=== PATIENT | female | born 1955 | race Hispanic/Latino ===

== ENCOUNTER 2022-08-09 06:52 | Day surgery (SDC) | payer MEDICARE ==
[2022-08-07 10:05] LABS: BASOPHILS % (AUTO) 0.4 % (0.0-5.0); EOSINOPHILS % (AUTO) 3.4 % (0.0-8.0); HEMATOCRIT 42.1 % (36-48); LYMPHOCYTES % (AUTO) 27.5 % (21.0-51.0); MEAN CORPUSCULAR HEMOGLOBIN 31.1 pg (27.0-33.0); MEAN CORPUSCULAR HGB CONC 32.1 g/dL (32.0-36.0); MONOCYTES % (AUTO) 7.5 % (3.0-13.0); NEUTROPHILS % (AUTO) 60.8 % (40.0-77.0); PLATELET COUNT (AUTO) 252 K/uL (130-400); RED BLOOD CELL COUNT(AUTO) 4.34 MIL/uL (4.00-5.50); WHITE BLOOD COUNT (AUTO) 10.7 K/uL (4.8-10.8)
[2022-08-07 10:09] LABS: CREATININE 0.8 mg/dL (0.5-1.5); INR 0.97 (0.85-1.15); PROTHROMBIN TIME 11.3 SEC (9.6-11.6)
[2022-08-07 10:10] LABS: PARTIAL THROMBOPLASTIN TIME 24.9 SEC (26.3-35.5)
[2022-08-07 11:06] VITALS: BP 148/74
[~2022-08-09] VITALS: Ht 157.5 cm; Wt 69.8 kg
[2022-08-09] VITALS (7 sets, daily range): BP systolic 130–152; BP diastolic 46–63
[~2022-08-09 06:52] MED LIST: AEC81 PO; AMIO200T68 PO; APIX5TAB PO; ATOR40TA71 PO; BIOT10005 PO; CHOL200013 PO; ESTR1TAB17 PO; FURO20TA4 PO; INSU100I26 SQ; LEVO25CA4 PO; LOSA50TA64 PO; METO-408 PO; MULT-952 PO; PREG150C46 PO; SEMA0.258 SQ; SITA1TAB6 PO; ZINC220T4 PO
[2022-08-09] MEDS ORDERED: 0.9%NACL 1000ML 1,000 ML IV ONE (08:05)
[2022-08-09] MEDS ORDERED: IODIXANOL 320 MG/ML 100 ML VIAL ONE (10:42)
[2022-08-09] MEDS ORDERED: HEPARIN 10,000 UNIT/10ML (1,000 UNIT/ML) VIAL ONE (10:42)
[2022-08-09] MEDS ORDERED: MIDAZOLAM HCL 1 MG/ML 2ML VIAL ONE ×2 (10:42→11:41)
[2022-08-09] MEDS ORDERED: LIDOCAINE HCL 1% MDV 50ML VIAL ONE (10:42)
[2022-08-09] MEDS ORDERED: NITROGLYCERIN 50MG VIAL ONE (10:43)
[2022-08-09] MEDS ORDERED: FENTANYL CITRATE PF 50 MCG/1 ML 2ML VIAL ONE ×2 (10:43→11:41)
[2022-08-09] MEDS ORDERED: ACETAMINOPHEN WITH CODEINE 1 TAB TAB PO PRN (13:00)
[2022-08-09] MEDS ORDERED: 0.9%NACL 1000ML 1,000 ML IV SCH (13:00)
== END 2022-08-09 14:35 | disposition home or self-care (01) ==
LOC: DAH 06:52
PROVIDERS: ATTEND Internal Medicine
DX: I70.238 Atherosclerosis of native arteries of right leg with ulceration of other part of lower leg (principal); I70.248 Atherosclerosis of native arteries of left leg with ulceration of other part of lower leg; E11.51 Type 2 diabetes mellitus with diabetic peripheral angiopathy without gangrene; I70.92 Chronic total occlusion of artery of the extremities; L97.828 Non-pressure chronic ulcer of other part of left lower leg with other specified severity; E11.40 Type 2 diabetes mellitus with diabetic neuropathy, unspecified; I49.1 Atrial premature depolarization; I48.0 Paroxysmal atrial fibrillation; I10 Essential (primary) hypertension; E78.5 Hyperlipidemia, unspecified; Z79.899 Other long term (current) drug therapy; Z79.01 Long term (current) use of anticoagulants; Z98.890 Other specified postprocedural states
CPT/HCPCS: 80048; 85025; 85610; 85730; 36415; 71045; 93005; 75716; 36246; 96360; 82948; 96361; C1894 ×2; C1760; C1769; J3010; J7030; J2250; J1644; J3490 ×2; Q9967; A4215; A4222; A4221; A4663; A4216; A4606; A4223 ×3; 75625; 99156; 99157

== ENCOUNTER → 2024-06-27 | Outpatient (CLI) | payer OTHER, MEDICARE ==
[~2024-06-27] MED LIST changes: -LEVO25CA4 PO; +LEVO25CA5 PO; -PREG150C46 PO; +PREG150C47 PO
--- NOTE | 2024-06-27 10:21 | HMCIMG ---
US ABDOMINAL COMPLETE HISTORY: Elevated liver function tests COMPARISON: None TECHNIQUE: Multiple transverse and longitudinal ultrasound images of the abdomen were obtained. FINDINGS: Dominant aorta is not well visualized. Flow is seen in the inferior vena cava. Liver measured 15.7 cm. The visualized portion of the pancreas is within normal limits. Liver is echogenic consistent with liver parenchymal disease. No gallstone is seen. Common duct measures 4 mm. No evidence of gallbladder wall thickening is seen. Both kidneys are seen. Right kidney measures 10.3 x 5.6 x 4.5 cm. Left kidney measures 9.8 x 5.2 x 4.3 cm. No hydronephrosis is seen of the both kidneys. The spleen is grossly unremarkable. IMPRESSION: 1. No gallstone or ductal dilatation is seen. 2. No hydronephrosis is seen.
== END | disposition home or self-care (01) ==
LOC: RAH 09:45
PROVIDERS: ATTEND Nurse Practitioner Family
DX: R79.89 Other specified abnormal findings of blood chemistry (principal)
CPT/HCPCS: 76700